=== PATIENT | female | born 1970 | race Caucasian/White ===

== ENCOUNTER 2016-03-18 11:34 | Emergency (ER) | payer OTHER ==
--- NOTE | 2016-03-18 16:29 | ED ---
GI/ HPI - HPI Summary HPI Summary: 45 F w/ PMH of fibroids presents with increase vaginal bleeding and possible prolapse. She states her menstrual period was later than normal. It started three days ago. She has experienced greater bleeding than normal. She states that she notice something prolapse out of her vagina yesterday but that it is not there today. She states she has passed a couple clots. She states she is suppose to be followed for her fibroids every year but has not seen an OBGYN in a year. She also admits to dysuria and her normal cramping pelvic pain for her periods. She states she has had frequent UTI. She had two vaginal births, one miscarriage, and two abortions. - History of Current Complaint Chief Complaint: EDUrogenitalProblems Time Seen by Provider: 03/18/16 16:14 Stated Complaint: VAG PROBLEM Pain Intensity: 3 - Allergy/Home Medications Allergies/Adverse Reactions: Allergies Allergy/AdvReac Type Severity Reaction Status Date / Time Sulfa Drugs Allergy Severe Difficulty Verified 06/20/15 08:59 Breathing Acetaminophen [From Tylenol] Allergy Difficulty Verified 06/20/15 08:59 Breathing Amoxicillin Allergy Rash Verified 06/20/15 08:59 Penicillins Allergy Rash Verified 06/20/15 08:59 Ibuprofen AdvReac See Comment Verified 06/20/15 08:59 PENI Allergy Headache Uncoded 06/20/15 08:59 PMH/Surg Hx/FS Hx/Imm Hx Endocrine/Hematology History: Reports: Hx Thyroid Disease - hypothyroid Denies: Hx Diabetes Cardiovascular History: Denies: Hx Congestive Heart Failure, Hx Hypertension, Hx Myocardial Infarction, Hx Pacemaker/ICD Respiratory History: Denies: Hx Asthma, Hx Chronic Obstructive Pulmonary Disease (COPD), Hx Lung Cancer GI History: Denies: Hx Gall Bladder Disease, Hx Gastrointestinal Bleed, Hx Ulcer, Hx Urosepsis History: Reports: Other Problems/Disorders - difficulty "getting started" recently Denies: Hx Kidney Stones, Hx Renal Disease Musculoskeletal History: Reports: Hx Back Problems Sensory History: Denies: Hx Hearing Aid Neurological History: Reports: Hx Migraine Denies: Hx Dementia, Hx Seizures, Hx Transient Ischemic Attacks (TIA) Psychiatric History: Reports: Hx Anxiety, Hx Depression Denies: Hx Eating Disorder, Hx Panic Disorder, Hx of Violent Episodes Against Others - Surgical History Surgery Procedure, Year, and Place: [facility] 2013. arm laceration 1985 Hx Anesthesia Reactions: No Infectious Disease History: No Infectious Disease History: Denies: Hx Clostridium Difficile, Hx Hepatitis, Hx Human Immunodeficiency Virus (HIV), Hx of Known/Suspected MRSA, Hx Shingles, Hx Tuberculosis, Hx Known/ Suspected VRE, Hx Known/Suspected VRSA, History Other Infectious Disease, Traveled Outside the [place] in Last 30 Days - Family History Known Family History: Positive: None, Unknown, Cardiac Disease, Hypertension - Social History Alcohol Use: Rare Substance Use Type: Reports: None Smoking Status (MU): Never Smoked Tobacco Amount Used/How Often: social smoker 20 years ago Review of Systems Negative: Fever Negative: Chest Pain Negative: Shortness Of Breath Positive: dysuria, other - vaginal bleeding, possible prolapse All Other Systems Reviewed And Are Negative: Yes Physical Exam Triage Information Reviewed: Yes Vital Signs On Initial Exam: Initial Vitals Temp Pulse Resp BP Pulse Ox 98.0 F 94 16 125/69 99 03/18/16 11:37 03/18/16 11:37 03/18/16 11:37 03/18/16 11:37 03/18/16 11:37 Vital Signs Reviewed: Yes Appearance: Positive: Well-Appearing Skin: Positive: Warm, Dry Head/Face: Positive: Normal Head/Face Inspection Eyes: Positive: Normal, Conjunctiva Clear ENT: Positive: Normal ENT inspection, Pharynx normal, TMs normal Respiratory/Lung Sounds: Positive: Clear to Auscultation, Breath Sounds Present Cardiovascular: Positive: Normal, RRR Abdomen Description: Positive: Nontender, Soft Bowel Sounds: Positive: Present Pelvic Exam: Positive: external exam normal, bimanual exam normal, no cerv. motion tender, blood, other - anterior prolapse noted on speculum exam Diagnostics - Vital Signs Vital Signs Temp Pulse Resp BP Pulse Ox 03/18/16 15:19 99.4 F 80 16 138/92 100 03/18/16 11:37 98.0 F 94 16 125/69 99 - Laboratory Result Diagrams: 03/18/16 16:30 Lab Statement: Any lab studies that have been ordered have been reviewed, and results considered in the medical decision making process. - Ultrasound No standard instances Ultrasound Interpretation: Positive (See Comments) - IMPRESSION: 1. At least one uterine fibroid is identified increased in size since the 2008 pelvic ultrasound. In addition the uterus is diffusely heterogeneous suggesting the presence of adenomyosis. If clinically warranted this can be further characterized with MRI of the pelvis with and without contrast. 2. Minimally enlarged periuterine veins can be associated with pelvic congestion syndrome in the correct clinical setting. Ultrasound Interpretation Completed By: Radiologist VILLA Course/Dx - Course Course Of Treatment: 45 F presents with increase vaginal bleeding and possible prolapse. Had normal menstrual period started 3 days ago with increased bleeding and noticed that something prolapsed when she went to the bathroom. She has a history of fibroids that she has not followed up with obgyn for in a year. On exam noted that has anterior prolapse in vaginal canal. u/s showed fibroid increased in size, discussed seeing obgyn for these problems and to perform kegel excerises in the meantime, patient agrees with plan - Diagnoses Differential Diagnoses - Female: , STD, Urinary Tract Infection, Vaginitis Provider Diagnoses: Prolapse of anterior vaginal wall, Fibroid, uterine, Vaginal bleeding Discharge - Discharge Plan Condition: Good Disposition: HOME Patient Education Materials: Uterine Prolapse (ED) Referrals: Luan Rodriguez MD [Primary Care Provider] - Additional Instructions: Follow up with OBGYN for continued care. Practice pelvic floor exercises Return to ED if develop any new or worsening symptoms
[2016-03-18 16:41] LABS: Hematocrit 41 % (35-47); Hemoglobin 13.8 g/dl (12.0-16.0); Mean Corpuscular HGB Conc 33 g/dl (31-36); Mean Corpuscular Hemoglobin 30 pg (27-31); Mean Corpuscular Volume 89 fL (80-97); Mean Platelet Volume 8 um3 (7.4-10.4); Red Blood Count 4.67 10^6/ul (4.0-5.4); Red Cell Distribution Width 14 % (10.5-15); White Blood Count 9.9 10^3/ul (3.5-10.8)
[2016-03-18 16:55] LABS: Urine Bacteria Absent (Absent); Urine Bilirubin Negative (Negative); Urine Glucose Negative (Negative); Urine Nitrite Negative (Negative)
--- NOTE | 2016-03-18 18:20 | RAD ---
INDICATION: Heavy vaginal bleeding COMPARISON: Pelvic ultrasound dated December 11, 2008 TECHNIQUE: Real-time transabdominal and transvaginal ultrasound examination of the female pelvis including grayscale and Doppler color flow imaging. FINDINGS: Uterus: The uterus measures 9.7 x 5.2 x 6.0 cm. There is at least one well-circumscribed uterine fibroid identified in the posterior myometrium measuring 1.8 x 2.1 x 2.4 cm, previously 1.3 x 1.1 x 1.1 cm. The uterus is heterogeneous and echogenicity. The endometrial stripe measures 5 mm in thickness. There are slightly enlarged periuterine veins measuring up to 6 mm in diameter that exhibited minimal augmentation with Valsalva maneuver. Ovaries: The right and left ovary measure 3.0 x 2.7 x 2.0 cm and 3.8 x 4.0 x 2.0 cm, respectively. Normal arterial and venous waveforms are identified. Appearance is within normal limits for the patient's age. There is no free fluid in the cul-de-sac. IMPRESSION: 1. At least one uterine fibroid is identified increased in size since the 2009 pelvic ultrasound. In addition the uterus is diffusely heterogeneous suggesting the presence of adenomyosis. If clinically warranted this can be further characterized with MRI of the pelvis with and without contrast. 2. Minimally enlarged periuterine veins can be associated with pelvic congestion syndrome in the correct clinical setting.
[2016-03-18 18:45] VITALS: BP 132/79
--- NOTE | 2016-03-20 08:10 | ED ---
Progress - Progress Note Progress Note: Pt's urine cx reveals klebsiella penum - she was dx'd w/ uterine prolapse and no medications. Will wait for sensitivities before rx'ing medication. Course/Dx - Course Course Of Treatment: 45 F presents with increase vaginal bleeding and possible prolapse. Had normal menstrual period started 3 days ago with increased bleeding and noticed that something prolapsed when she went to the bathroom. She has a history of fibroids that she has not followed up with obgyn for in a year. On exam noted that has anterior prolapse in vaginal canal. u/s showed fibroid increased in size, discussed seeing obgyn for these problems and to perform kegel excerises in the meantime, patient agrees with plan - Diagnoses Provider Diagnoses: Prolapse of anterior vaginal wall, Fibroid, uterine, Vaginal bleeding
--- NOTE | 2016-03-21 15:16 | ED ---
Progress - Progress Note Progress Note: Pt's urine cx reveals klebsiella penum - she was dx'd w/ uterine prolapse and no medications. Will wait for sensitivities before rx'ing medication. C&S returned today. Pt's organism is sensitive to most medications however given her allergy list, would avoid bactrim and beta lact anbx. Med list indicates she's taking cipro - not sure if this is current? Tried to call to discuss current med regimen status - no answer - LMTC. *If she's not currently taking cipro and hasn't taken it recently, would consider rx'ing for current condition as she's had it in the past (may inquire about previous experience if poor, consider alternative tx - see sensitivities for options). Course/Dx - Course Course Of Treatment: 45 F presents with increase vaginal bleeding and possible prolapse. Had normal menstrual period started 3 days ago with increased bleeding and noticed that something prolapsed when she went to the bathroom. She has a history of fibroids that she has not followed up with obgyn for in a year. On exam noted that has anterior prolapse in vaginal canal. u/s showed fibroid increased in size, discussed seeing obgyn for these problems and to perform kegel excerises in the meantime, patient agrees with plan - Diagnoses Provider Diagnoses: Prolapse of anterior vaginal wall, Fibroid, uterine, Vaginal bleeding
--- NOTE | 2016-03-22 13:48 | ED ---
Progress - Progress Note Progress Note: Pt's urine cx reveals klebsiella penum - she was dx'd w/ uterine prolapse and no medications. Will wait for sensitivities before rx'ing medication. C&S returned today. Pt's organism is sensitive to most medications however given her allergy list, would avoid bactrim and beta lact anbx. Med list indicates she's taking cipro - not sure if this is current? Tried to call to discuss current med regimen status - no answer - LMTC. *If she's not currently taking cipro and hasn't taken it recently, would consider rx'ing for current condition as she's had it in the past (may inquire about previous experience if poor, consider alternative tx - see sensitivities for options). Spoke w/ pt today - she reports she was actually dx'd w/ "bladder prolapse" not uterine prolapse - h/o recurrent UTI's - had cipro w/in the past month and takes this frequently. Admits she is resistant to this at times as she has other drug allergies so this has become a common rx for her infections. Feels a littl better since her period ended as she also has fibroids. Cx reveals she is sensitive to tetracycline so will start doxycycline - pt agrees w/ plan. E-rx'd and pt agrees to f/u w/ PCP Thursday. Understands if she has worsening of sx prior, will return to ED Course/Dx - Course Course Of Treatment: 45 F presents with increase vaginal bleeding and possible prolapse. Had normal menstrual period started 3 days ago with increased bleeding and noticed that something prolapsed when she went to the bathroom. She has a history of fibroids that she has not followed up with obgyn for in a year. On exam noted that has anterior prolapse in vaginal canal. u/s showed fibroid increased in size, discussed seeing obgyn for these problems and to perform kegel excerises in the meantime, patient agrees with plan - Diagnoses Provider Diagnoses: Prolapse of anterior vaginal wall, Fibroid, uterine, Vaginal bleeding
== END 2016-03-18 19:02 | disposition home or self-care (01) ==
LOC: ED 11:34
DX: N81.10 Cystocele, unspecified (principal); D25.9 Leiomyoma of uterus, unspecified; N93.9 Abnormal uterine and vaginal bleeding, unspecified; R30.0 Dysuria
CPT/HCPCS: 36415; 76830; 81003; 81015; 84702; 85025; 87077; 87086; 87186; 87480; 87491; 87510; 87591; 87661; 99282

== ENCOUNTER 2016-04-15 06:50 | Observation (INO) | payer OTHER ==
[2016-04-15] MEDS ORDERED: NS 0.9% 1000 ML* 1,000 ML IV ONE ×2 (07:24→08:23)
[2016-04-15 08:22] LABS: Hematocrit 37 % (35-47); Hemoglobin 12.2 g/dl (12.0-16.0); Mean Corpuscular HGB Conc 33 g/dl (31-36); Mean Corpuscular Hemoglobin 30 pg (27-31); Mean Corpuscular Volume 89 fL (80-97); Mean Platelet Volume 8 um3 (7.4-10.4); Red Blood Count 4.14 10^6/ul (4.0-5.4); Red Cell Distribution Width 14 % (10.5-15); White Blood Count 9.5 10^3/ul (3.5-10.8)
[2016-04-15 08:34] LABS: ALT 14 U/L (7-52); AST 18 U/L (13-39); Albumin 4.1 g/dL (3.2-5.2); Alkaline Phosphatase 58 U/L (34-104); Anion Gap 6 mmol/L (2-11); BUN/Creatinine Ratio 16.7 (8-20); Blood Urea Nitrogen 12 mg/dL (6-24); CO2 Carbon Dioxide 29 mmol/L (22-32); Calcium 9.1 mg/dL (8.6-10.3); Chloride 101 mmol/L (101-111); EGFR African American 113.7 (>60); EGFR Non-African American 88.4 (>60); Globulin 2.7 g/dL (2-4); Glucose 120 mg/dL (70-100); Potassium 3.9 mmol/L (3.5-5.0); Sodium 136 mmol/L (133-145); Total Protein 6.8 g/dL (6.4-8.9)
[2016-04-15 08:52] LABS: Acetaminophen < 15 mcg/mL; Alcohol < 10 mg/dL (<10); Salicylate < 2.50 mg/dL (<30)
[2016-04-15] MEDS ORDERED: Norgestrel/Ethinyl Estrad TAB* 0.5 MG/0.05 MG PO ONE (13:44)
[2016-04-15] MEDS ORDERED: Ondansetron ODT TAB* 4 MG PO PRN (14:37)
--- NOTE | 2016-04-15 16:33 | ED ---
Sayra Morrison Anna, scribed for Galen Owens MD on 04/15/16 at 0815 . GI/ HPI - HPI Summary HPI Summary: Patient is a 45 y/o female coming to [facility] presenting with the sudden onset of heavy vaginal bleeding that began yesterday morning. She is going through one adult diaper, one tampon, and two super pads each other. She syncopized at 01: 30 this morning, woke up in the bathroom, and drank one swallow of nail pakistani remover, thinking it was water. She spit it out and called poison control. Poison control said it was okay to throw up and recommended that she have peanut butter toast. She then came here. Denies fevers, chills. She also experienced heavy vaginal bleeding with the last few menstrual cycles, but this one is the worst so far. She does not want to receive blood products. - History of Current Complaint Chief Complaint: EDVaginalBleeding Time Seen by Provider: 04/15/16 08:08 Stated Complaint: VAG BLEEDING Hx Obtained From: Patient, Family/Crew Director Onset/Duration: Started Days Ago, Still Present Pain Intensity: 0 - Allergy/Home Medications Allergies/Adverse Reactions: Allergies Allergy/AdvReac Type Severity Reaction Status Date / Time Sulfa Drugs Allergy Severe Difficulty Verified 04/15/16 07:15 Breathing Acetaminophen [From Tylenol] Allergy Difficulty Verified 04/15/16 07:15 Breathing Amoxicillin Allergy Rash Verified 04/15/16 07:15 Penicillins Allergy Rash Verified 04/15/16 07:15 Ibuprofen AdvReac See Comment Verified 04/15/16 07:15 PENI Allergy Headache Uncoded 06/20/15 08:59 PMH/Surg Hx/FS Hx/Imm Hx Endocrine/Hematology History: Reports: Hx Thyroid Disease - hypothyroid Denies: Hx Diabetes Cardiovascular History: Denies: Hx Congestive Heart Failure, Hx Hypertension, Hx Myocardial Infarction, Hx Pacemaker/ICD Respiratory History: Denies: Hx Asthma, Hx Chronic Obstructive Pulmonary Disease (COPD), Hx Lung Cancer GI History: Denies: Hx Gall Bladder Disease, Hx Gastrointestinal Bleed, Hx Ulcer, Hx Urosepsis History: Reports: Other Problems/Disorders - difficulty "getting started" recently; prolapsed bladder Denies: Hx Kidney Stones, Hx Renal Disease Musculoskeletal History: Reports: Hx Back Problems Sensory History: Denies: Hx Hearing Aid Neurological History: Reports: Hx Migraine Denies: Hx Dementia, Hx Seizures, Hx Transient Ischemic Attacks (TIA) Psychiatric History: Reports: Hx Anxiety, Hx Depression Denies: Hx Eating Disorder, Hx Panic Disorder, Hx of Violent Episodes Against Others - Surgical History Surgery Procedure, Year, and Place: [facility] 2013. arm laceration 1985 Hx Anesthesia Reactions: No Infectious Disease History: No Infectious Disease History: Denies: Hx Clostridium Difficile, Hx Hepatitis, Hx Human Immunodeficiency Virus (HIV), Hx of Known/Suspected MRSA, Hx Shingles, Hx Tuberculosis, Hx Known/ Suspected VRE, Hx Known/Suspected VRSA, History Other Infectious Disease, Traveled Outside the [place] in Last 30 Days - Family History Known Family History: Positive: Cardiac Disease, Hypertension - Social History Occupation: Employed Full-time Lives: With Family Alcohol Use: Rare Substance Use Type: Reports: None Smoking Status (MU): Never Smoked Tobacco Amount Used/How Often: social smoker 20 years ago Review of Systems Negative: Fever, Chills Positive: Abdominal Pain Positive: other - vaginal bleeding Positive: Syncope All Other Systems Reviewed And Are Negative: Yes Physical Exam Triage Information Reviewed: Yes Vital Signs On Initial Exam: Initial Vitals Temp Pulse Resp BP Pulse Ox 98 F 95 17 140/78 100 04/15/16 07:11 04/15/16 07:11 04/15/16 07:11 04/15/16 07:11 04/15/16 07:11 Vital Signs Reviewed: Yes Appearance: Positive: Well-Appearing, No Pain Distress Skin: Positive: Warm, Dry, Pale - Slightly Head/Face: Positive: Normal Head/Face Inspection Eyes: Positive: EOMI, ALFREDO ENT: Positive: Normal ENT inspection Neck: Positive: Supple, Nontender Respiratory/Lung Sounds: Positive: Clear to Auscultation, Breath Sounds Present Cardiovascular: Positive: Tachycardia, Other - current BP 111/68 Abdomen Description: Positive: Nontender, Soft Bowel Sounds: Positive: Present Musculoskeletal: Positive: Normal, Strength/ROM Intact Neurological: Positive: Sensory/Motor Intact, Alert, Oriented to Person Place, Time Psychiatric: Positive: Affect/Mood Appropriate - Gualberto Coma Scale Coma Scale Total: 15 Diagnostics - Vital Signs Vital Signs Temp Pulse Resp BP Pulse Ox 04/15/16 07:11 98 F 95 17 140/78 100 - Laboratory Lab Results: Lab Results 04/15/16 04/15/16 04/15/16 Range/Units 07:45 07:45 07:45 WBC 9.5 (3.5-10.8) 10^3/ul RBC 4.14 (4.0-5.4) 10^6/ul Hgb 12.2 (12.0-16.0) g/dl Hct 37 (35-47) % MCV 89 (80-97) fL MCH 30 (27-31) pg MCHC 33 (31-36) g/dl RDW 14 (10.5-15) % Plt Count 373 (150-450) 10^3/ul MPV 8 (7.4-10.4) um3 Neut % (Auto) 55.2 (38-83) % Lymph % (Auto) 26.7 (25-47) % [place] % (Auto) 9.0 (1-9) % Eos % (Auto) 8.3 H (0-6) % Baso % (Auto) 0.8 (0-2) % Absolute Neuts (auto) 5.3 (1.5-7.7) 10^3/ul Absolute Lymphs (auto) 2.6 (1.0-4.8) 10^3/ul Absolute Monos (auto) 0.9 H (0-0.8) 10^3/ul Absolute Eos (auto) 0.8 H (0-0.6) 10^3/ul Absolute Basos (auto) 0.1 (0-0.2) 10^3/ul Absolute Nucleated RBC 0 10^3/ul Nucleated RBC % 0 INR (Anticoag Therapy) 1.05 (0.89-1.11) APTT 33.4 (26.0-36.3) seconds Sodium 136 (133-145) mmol/L Potassium 3.9 (3.5-5.0) mmol/L Chloride 101 (101-111) mmol/L Carbon Dioxide 29 (22-32) mmol/L Anion Gap 6 (2-11) mmol/L BUN 12 (6-24) mg/dL Creatinine 0.72 (0.51-0.95) mg/dL Est GFR ( Amer) 113.7 (>60) Est GFR (Non-Af Amer) 88.4 (>60) BUN/Creatinine Ratio 16.7 (8-20) Glucose 120 H (70-100) mg/dL Calcium 9.1 (8.6-10.3) mg/dL Total Bilirubin 0.40 (0.2-1.0) mg/dL AST 18 (13-39) U/L ALT 14 (7-52) U/L Alkaline Phosphatase 58 (34-104) U/L Total Protein 6.8 (6.4-8.9) g/dL Albumin 4.1 (3.2-5.2) g/dL Globulin 2.7 (2-4) g/dL Albumin/Globulin Ratio 1.5 (1-3) Salicylates < 2.50 (<30) mg/dL Acetaminophen < 15 mcg/mL Serum Alcohol < 10 (<10) mg/dL Blood Type Antibody Screen 04/15/16 Range/Units 07:45 WBC (3.5-10.8) 10^3/ul RBC (4.0-5.4) 10^6/ul Hgb (12.0-16.0) g/dl Hct (35-47) % MCV (80-97) fL MCH (27-31) pg MCHC (31-36) g/dl RDW (10.5-15) % Plt Count (150-450) 10^3/ul MPV (7.4-10.4) um3 Neut % (Auto) (38-83) % Lymph % (Auto) (25-47) % [place]ac % (Auto) (1-9) % Eos % (Auto) (0-6) % Baso % (Auto) (0-2) % Absolute Neuts (auto) (1.5-7.7) 10^3/ul Absolute Lymphs (auto) (1.0-4.8) 10^3/ul Absolute Monos (auto) (0-0.8) 10^3/ul Absolute Eos (auto) (0-0.6) 10^3/ul Absolute Basos (auto) (0-0.2) 10^3/ul Absolute Nucleated RBC 10^3/ul Nucleated RBC % INR (Anticoag Therapy) (0.89-1.11) APTT (26.0-36.3) seconds Sodium (133-145) mmol/L Potassium (3.5-5.0) mmol/L Chloride (101-111) mmol/L Carbon Dioxide (22-32) mmol/L Anion Gap (2-11) mmol/L BUN (6-24) mg/dL Creatinine (0.51-0.95) mg/dL Est GFR ( Amer) (>60) Est GFR (Non-Af Amer) (>60) BUN/Creatinine Ratio (8-20) Glucose (70-100) mg/dL Calcium (8.6-10.3) mg/dL Total Bilirubin (0.2-1.0) mg/dL AST (13-39) U/L ALT (7-52) U/L Alkaline Phosphatase (34-104) U/L Total Protein (6.4-8.9) g/dL Albumin (3.2-5.2) g/dL Globulin (2-4) g/dL Albumin/Globulin Ratio (1-3) Salicylates (<30) mg/dL Acetaminophen mcg/mL Serum Alcohol (<10) mg/dL Blood Type O Positive Antibody Screen Negative Result Diagrams: 04/15/16 07:45 04/15/16 07:45 Lab Statement: Any lab studies that have been ordered have been reviewed, and results considered in the medical decision making process. - EKG 0730 Cardiac Rate: NL - 97 bpm EKG Rhythm: Sinus Rhythm ST Segment: Normal Ectopy: None Re-Evaluation - Re-Evaluation First Eval Re-Evaluation Time: 12:41 Change: Unchanged Comment: Patient reports that she is still bleeding. The pain is currently unremarkable. Discussed results and plan of care with patient. Patient and family are agreeable. GIGU Course/Dx - Course Assessment/Plan: Discussed results with patient/family. Dr Simmons saw patient in ed. Patient admitted to mold closer helper stable. - Diagnoses Provider Diagnoses: menorrhagia - Physician Notifications Discussed Care Of Patient With: Dr. Simmons (OBGYN) at 13:06. Consult with Dr. Grace and call back if needed. Dr. Simmons (OBGYN) at 13:36. Dr. Simmons will come see the patient. Dr. Simmons (OBGYN) at 14:28. Accepts pt for admission. Discharge - Discharge Plan Condition: Stable Disposition: ADMITTED TO [facility] The documentation as recorded by the Sayra mccarthy Anna accurately reflects the service I personally performed and the decisions made by me, Galen Owens MD.
[2016-04-15] MEDS: Conjugated Estrogens TAB* 1.25 MG TAB PO SCH ×2 (16:40→21:26)
[2016-04-15] MEDS ORDERED: LORazepam TAB(*) 0.5 MG PO PRN (21:21)
[2016-04-15 21:59] LABS: Hematocrit 27 % (35-47); Hemoglobin 8.9 g/dl (12.0-16.0); Mean Corpuscular HGB Conc 33 g/dl (31-36); Mean Corpuscular Hemoglobin 29 pg (27-31); Mean Corpuscular Volume 89 fL (80-97); Mean Platelet Volume 8 um3 (7.4-10.4); Red Blood Count 3.07 10^6/ul (4.0-5.4); Red Cell Distribution Width 14 % (10.5-15); White Blood Count 14.3 10^3/ul (3.5-10.8)
--- NOTE | 2016-04-15 22:07 | PN ---
Progress Note - Progress Note SOAP: Subjective: Pt reports no improvement in bleeding so far. Just had first dose of Premarin 2.5mg about 6 hrs ago, and second dose was given a few min ago. Tired, and unable to rest because she has to change a soaked pad every 15-20 min. Objective: Vital Signs: Temp Pulse Resp BP Pulse Ox 98.5 F 102 20 128/83 100 04/15/16 20:15 04/15/16 20:15 04/15/16 21:56 04/15/16 20:15 04/15/16 20:15 Gen: seated, comfortable, NAD, but appears tired Assessment: Acute menorrhagia, about 6 hrs into hormone treatment to try to improve bleeding. Still hemodynamically stable at this point. Plan: CBC ordered and pending. Discussed options for treatment if bleeding does not improve in the next several hours and if H/H is alarming. Considering pt will not allow blood transfusion, I would need to be more aggressive with possible surgical treatment. Options include D&C (which would likely give only temporary benefit). Intrauterine balloon would likely need to accompany this to allow tamponade. Endometrial ablation after D&C would also be reasonable treatment since pt has already had a recent embx which was benign. Pt is amenable to these treatments if needed. I will reassess later to see if bleeding is improving.
--- NOTE | 2016-04-15 23:28 | HP ---
HISTORY AND PHYSICAL: DATE OF ADMISSION: 04/15/16 HISTORY OF PRESENT ILLNESS: This patient is a 45-year-old 3 para 2-0-1- 2, who presented to the emergency department today reporting very heavy menses that started yesterday, continued all day and all night, and she eventually got concerned and came in to the emergency department. The patient reports that she was having to change fairly heavy pads at least twice an hour during this time. The patient denies nausea or vomiting. No syncope or lightheadedness. The patient has been followed in the [facility] recently for this heavy bleeding as well as for complaint of urinary incontinence and uterine prolapse. The patient has actually already been seen by Dr. Magallon in Interventional Radiology with plans for uterine artery embolization to treat the heavy bleeding and signs of possible pelvic congestion. The patient had this procedure scheduled for next week. She was hoping to not have another period before the procedure to be done. The patient's periods have only been very heavy over the last 3-4 months. Prior to that, they had not been excessive. Of note, the patient is a Jehov[employer]' s Witness and therefore will not accept blood product transfusions. PAST MEDICAL HISTORY: Hypothyroidism, urinary incontinence, and history of depression. PAST SURGICAL HISTORY: Appendectomy, repair of laceration on her arm, and wisdom tooth extraction. PAST OB HISTORY: 3, para 2 with 2 spontaneous vaginal deliveries, and one miscarriage. ALLERGIES: SULFA, AMOXICILLIN, and ACETAMINOPHEN. MEDICATIONS: 1. Maxalt 10 mg p.r.n. for headaches. 2. Lorazepam 0.5 to 1 mg b.i.d. as needed for anxiety. 3. Clayton Thyroid 60 mg daily. SOCIAL HISTORY: The patient is with a long distance relationship currently. Negative tobacco and rare alcohol use. No drug use. REVIEW OF SYSTEMS: General: The patient is anxious but otherwise feels well. Cardiovascular: Negative. Respiratory: Negative. GI: Negative. Genitourinary: As above. Neurological: Negative. Hematological: As above. PHYSICAL EXAMINATION GENERAL: The patient is in no acute distress. Fairly comfortable and seated. VITAL SIGNS: Temperature 97.5, pulse 100, respiratory rate 20, oxygen saturation 99% on room air, blood pressure 147/87. CHEST: Clear to auscultation bilaterally. CARDIOVASCULAR: Normal sinus rhythm with mild tachycardia. ABDOMEN: Soft and nontender. PELVIC: Examination done by ER provider was notable for significant bright red vaginal bleeding and otherwise unremarkable. LABORATORY INFORMATION: White blood cell count 9.5, hemoglobin 12.2, hematocrit 37, platelets 373. Chemistry with potassium 3.9, creatinine 0.72. Normal LFTs. Imaging not done today, but pelvic ultrasound earlier this month showed uterus measuring 9.7 x 5.2 x 6 cm with one single 2.4 cm posterior fibroid. Uterus appears heterogeneous in echogenicity with an endometrial stripe of 5 mm. There is note of slightly enlarged periuterine veins. Ovaries appeared normal. IMPRESSION: A 45-year-old 3 para 2 with recent development of menorrhagia over the last 3-4 months, now with substantial bleeding, which started about 24 hours ago. The patient is currently hemodynamically stable with reassuring CBC, but the bleeding is persistent. PLAN: We attempted to see if the embolization could be done more urgently; however, Dr. Magallon is not available this week. For a short-term treatment, we will start Premarin 2.5 mg PO 4 times daily to see if we can improve the bleeding fairly quickly. The patient will be placed on observation, so we can continue to follow the bleeding and potentially offer additional treatment if necessary. Treatment will need to be somewhat more aggressive since the patient will not allow transfusion with blood products, and if she becomes hemodynamically unstable, it will be much more difficult to manage her. [id number]/[facility] #: [id number] ASHLEY
[2016-04-16] MEDS: Conjugated Estrogens TAB* 1.25 MG TAB PO SCH ×2 (03:08→08:23)
[2016-04-16] MEDS ORDERED: Thyroid TAB* 60 MG PO SCH (09:00)
[2016-04-16 09:35] LABS: Hematocrit 27 % (35-47); Hemoglobin 8.9 g/dl (12.0-16.0); Mean Corpuscular HGB Conc 33 g/dl (31-36); Mean Corpuscular Hemoglobin 29 pg (27-31); Mean Corpuscular Volume 89 fL (80-97); Mean Platelet Volume 8 um3 (7.4-10.4); Red Blood Count 3.06 10^6/ul (4.0-5.4); Red Cell Distribution Width 14 % (10.5-15); White Blood Count 11.6 10^3/ul (3.5-10.8)
[2016-04-16 11:34] VITALS: BP 137/73
--- NOTE | 2016-04-16 12:30 | DCNOTE ---
S: pt is feeling much better and her bleeding has decreased significantly. She feels tired but is able to ambulate without dizziness. Eating regular diet. She was finally able to sleep for 6hrs until about 8:30. VSS Gen: NAD, not pale Abd: soft, NT/ND Labs: H/H remained stable overnight at 8./. Assessment: 45yo pt with heavy vaginal bleeding and anemia. Bleeding has decreased significantly with initiation of premarin and her H/H stablized overnight. Due to her improvement she will be discharged. Plans: D/C to home Continue Premarin until [place]. Take iron supplement, colace prn, vitamin C for 6 weeks. Call our office with increased bleeding or any other concerns Follow up as scheduled with Dr. Magallon for MRI and then Uterine Artery Embolization next week.
--- NOTE | 2016-04-16 12:33 | DS ---
Admitting Dx: vaginal bleeding Discharge Dx: vaginal bleeding Hospital Course: Pt was admitted and placed on PO premarin with eventual decrease in her bleeding. Her H/H initially dropped but after the bleeding decreased a repeat H/H remained stable overnight. No films/xrays or procedures Discharge disposition: Home Discharge Instructions in computer system & reviewed with patient
== END 2016-04-16 14:25 | disposition home or self-care (01) ==
LOC: ED 06:50 → INTOOBSV 14:30 → SSU 14:30 → OBSVTOIN 14:30
PROVIDERS: ADMIT Obstetrics & Gynecology; ATTEND Obstetrics & Gynecology
DX: N92.0 Excessive and frequent menstruation with regular cycle (principal); E03.9 Hypothyroidism, unspecified; R32 Unspecified urinary incontinence; Z88.0 Allergy status to penicillin; Z88.2 Allergy status to sulfonamides; Z88.6 Allergy status to analgesic agent; Z88.8 Allergy status to other drugs, medicaments and biological substances
CPT/HCPCS: 36415; 80053; 80320; 80329; 85025; 85027; 85610; 85730; 86850; 86900; 86901; 93005; 96360; 96361; 99283; A9270-GY; G0378; G0480

== ENCOUNTER 2016-05-24 13:14 | Emergency (ER) | payer OTHER ==
[2016-05-24] MEDS ORDERED: oxyCODONE TAB* 5 MG TAB PO ONE (14:09)
[2016-05-24 14:24] LABS: Hematocrit 28 % (35-47); Hemoglobin 8.8 g/dl (12.0-16.0); Mean Corpuscular HGB Conc 32 g/dl (31-36); Mean Corpuscular Hemoglobin 26 pg (27-31); Mean Corpuscular Volume 80 fL (80-97); Mean Platelet Volume 7 um3 (7.4-10.4); Red Blood Count 3.45 10^6/ul (4.0-5.4); Red Cell Distribution Width 17 % (10.5-15); White Blood Count 6.3 10^3/ul (3.5-10.8)
[2016-05-24 14:40] LABS: Albumin 3.5 g/dL (3.2-5.2); BUN/Creatinine Ratio 18.2 (8-20); Calcium 8.5 mg/dL (8.6-10.3); EGFR African American 125.7 (>60); EGFR Non-African American 97.7 (>60); Globulin 2.7 g/dL (2-4); Magnesium 2.1 mg/dL (1.9-2.7); Potassium 3.7 mmol/L (3.5-5.0); Total Bilirubin 0.2 mg/dL (0.2-1.0); Total Protein 6.2 g/dL (6.4-8.9)
[2016-05-24 15:11] LABS: TSH (Thyroid Stimulating Horm) 0.86 mcIU/mL (0.34-5.60)
--- NOTE | 2016-05-24 15:17 | ED ---
Lower Extremity - HPI Summary HPI Summary: 45F presents with cramps in both legs. She says that she has been on control due to bleeding recently. She denies any injury. She describes it as a sharp pain when the cramps occur and a dull pain when she is not having the cramps. The pain is greatest in her right thigh. She denies any chest pain or SOB. She denies any personal or family history of blood clots, recent travel, or personal history of cancer. She does not currently smoke. - History of Current Complaint Chief Complaint: EDExtremityLower Stated Complaint: CRAMPS IN BOTH LEGS/SHAKEY Time Seen by Provider: 05/24/16 13:56 Hx Last Menstrual Period: 11/15/15 Pain Intensity: 10 - Allergies/Home Medications Allergies/Adverse Reactions: Allergies Allergy/AdvReac Type Severity Reaction Status Date / Time Sulfa Drugs Allergy Severe Difficulty Verified 05/24/16 13:17 Breathing Acetaminophen [From Tylenol] Allergy Difficulty Verified 05/24/16 13:17 Breathing Amoxicillin Allergy Rash Verified 05/24/16 13:17 Penicillins Allergy Rash Verified 05/24/16 13:17 Ibuprofen AdvReac See Comment Verified 05/24/16 13:17 PENI Allergy Headache Uncoded 05/24/16 13:17 PMH/Surg Hx/FS Hx/Imm Hx Endocrine/Hematology History: Reports: Hx Thyroid Disease - hypothyroid, Hx Anemia Denies: Hx Diabetes Cardiovascular History: Denies: Hx Congestive Heart Failure, Hx Hypertension, Hx Myocardial Infarction, Hx Pacemaker/ICD Respiratory History: Reports: Hx Chronic Bronchitis, Hx Seasonal Allergies Denies: Hx Asthma, Hx Chronic Obstructive Pulmonary Disease (COPD), Hx Lung Cancer GI History: Denies: Hx Gall Bladder Disease, Hx Gastrointestinal Bleed, Hx Ulcer, Hx Urosepsis History: Reports: Hx Kidney Infection, Other Problems/Disorders - difficulty "getting started" recently; prolapsed bladder Denies: Hx Kidney Stones, Hx Renal Disease Musculoskeletal History: Reports: Hx Back Problems Sensory History: Denies: Hx Hearing Aid Neurological History: Reports: Hx Headaches, Hx Migraine Denies: Hx Dementia, Hx Seizures, Hx Transient Ischemic Attacks (TIA) Psychiatric History: Reports: Hx Anxiety, Hx Depression Denies: Hx Eating Disorder, Hx Panic Disorder, Hx of Violent Episodes Against Others - Surgical History Surgery Procedure, Year, and Place: [facility] 2013. RIGHT arm laceration 1985 Hx Anesthesia Reactions: No Infectious Disease History: No Infectious Disease History: Denies: Hx Clostridium Difficile, Hx Hepatitis, Hx Human Immunodeficiency Virus (HIV), Hx of Known/Suspected MRSA, Hx Shingles, Hx Tuberculosis, Hx Known/ Suspected VRE, Hx Known/Suspected VRSA, History Other Infectious Disease, Traveled Outside the [place] in Last 30 Days - Family History Known Family History: Positive: None, Unknown, Cardiac Disease, Hypertension - Social History Alcohol Use: None Substance Use Type: Reports: None Smoking Status (MU): Former Smoker Amount Used/How Often: social smoker 20 years ago Review of Systems Negative: Fever Negative: Chest Pain Negative: Shortness Of Breath Positive: Myalgia - bilateral leg cramps All Other Systems Reviewed And Are Negative: Yes Physical Exam Triage Information Reviewed: Yes Vital Signs On Initial Exam: Initial Vitals Temp Pulse Resp BP Pulse Ox 100 F 111 16 152/72 100 05/24/16 13:17 05/24/16 13:17 05/24/16 13:17 05/24/16 13:17 05/24/16 13:17 Vital Signs Reviewed: Yes Appearance: Positive: Well-Appearing Skin: Positive: Warm, Dry Head/Face: Positive: Normal Head/Face Inspection Eyes: Positive: Normal, Conjunctiva Clear Respiratory/Lung Sounds: Positive: Clear to Auscultation, Breath Sounds Present Cardiovascular: Positive: Normal, RRR Musculoskeletal: Positive: Strength/ROM Intact - of lower extremity, Other - good pulses, capillary refill < 2secs, nontender to palpation,. Negative: Issa Sign Left, Issa Sign Right, Edema Left, Edema Right Diagnostics - Vital Signs Vital Signs Temp Pulse Resp BP Pulse Ox 05/24/16 14:20 99.2 F 110 24 138/48 98 05/24/16 13:51 99.7 F 103 24 137/48 100 05/24/16 13:43 100.5 F 110 24 137/48 100 05/24/16 13:17 100 F 111 16 152/72 100 - Laboratory Lab Results: Lab Results 05/24/16 05/24/16 Range/Units 11:45 11:45 WBC 6.3 (3.5-10.8) 10^3/ul RBC 3.45 L (4.0-5.4) 10^6/ul Hgb 8.8 L (12.0-16.0) g/dl Hct 28 L (35-47) % MCV 80 (80-97) fL MCH 26 L (27-31) pg MCHC 32 (31-36) g/dl RDW 17 H (10.5-15) % Plt Count 402 (150-450) 10^3/ul MPV 7 L (7.4-10.4) um3 Neut % (Auto) 50.1 (38-83) % Lymph % (Auto) 32.1 (25-47) % [place] % (Auto) 10.9 H (1-9) % Eos % (Auto) 6.1 H (0-6) % Baso % (Auto) 0.8 (0-2) % Absolute Neuts (auto) 3.1 (1.5-7.7) 10^3/ul Absolute Lymphs (auto) 2.0 (1.0-4.8) 10^3/ul Absolute Monos (auto) 0.7 (0-0.8) 10^3/ul Absolute Eos (auto) 0.4 (0-0.6) 10^3/ul Absolute Basos (auto) 0 (0-0.2) 10^3/ul Absolute Nucleated RBC 0 10^3/ul Nucleated RBC % 0 Sodium 135 (133-145) mmol/L Potassium 3.7 (3.5-5.0) mmol/L Chloride 102 (101-111) mmol/L Carbon Dioxide 29 (22-32) mmol/L Anion Gap 4 (2-11) mmol/L BUN 12 (6-24) mg/dL Creatinine 0.66 (0.51-0.95) mg/dL Est GFR ( Amer) 125.7 (>60) Est GFR (Non-Af Amer) 97.7 (>60) BUN/Creatinine Ratio 18.2 (8-20) Glucose 121 H (70-100) mg/dL Calcium 8.5 L (8.6-10.3) mg/dL Magnesium 2.1 (1.9-2.7) mg/dL Total Bilirubin 0.20 (0.2-1.0) mg/dL AST 31 (13-39) U/L ALT 17 (7-52) U/L Alkaline Phosphatase 38 (34-104) U/L Total Protein 6.2 L (6.4-8.9) g/dL Albumin 3.5 (3.2-5.2) g/dL Globulin 2.7 (2-4) g/dL Albumin/Globulin Ratio 1.3 (1-3) TSH 0.86 (0.34-5.60) mcIU/mL Result Diagrams: 05/24/16 11:45 05/24/16 11:45 Lab Statement: Any lab studies that have been ordered have been reviewed, and results considered in the medical decision making process. - Ultrasound No standard instances Ultrasound Interpretation: No Acute Changes - IMPRESSION: No evidence for RIGHT lower extremity deep venous thrombosis. Ultrasound Interpretation Completed By: Radiologist Lower Extremity Course/Dx - Course Course Of Treatment: 45F presents with leg cramps for a day that are severe. denies any injury. is on control but no other risk factors for DVT. pain greatest in right leg. neg homans and nontender to palpation. due to being on OCP got u/s right leg which was normal. ordered labs which Ca was a little low but not enough to really treat. told to take a couple tums and follow up with primary. patient understands and agrees with plan - Diagnoses Differential Diagnosis/HQI/PQRI: Positive: DVT, Sprain, Strain Provider Diagnoses: Leg cramps Discharge - Discharge Plan Condition: Good Disposition: HOME Prescriptions: oxyCODONE TAB* [Roxycodone TAB 5 mg*] 5 mg PO Q6H PRN #15 tab MDD 4 PRN Reason: Pain Patient Education Materials: Leg Cramps (ED) Referrals: Luan Rodriguez MD [Primary Care Provider] - Additional Instructions: Take Tylenol for pain every 6 hours. use narcotic for break through pain as needed every 6 hours Follow up with primary within 5 days Return to ED if develop any new or worsening symptoms
--- NOTE | 2016-05-24 15:22 | RAD ---
INDICATION: RIGHT calf and thigh cramping. On oral contraceptives. COMPARISON: April 07, 2015 LEFT lower extremity ultrasound. TECHNIQUE: Tyson scale, color Doppler, and spectral analysis of the deep veins of the RIGHT lower extremity. Vessel compression, phasicity, and augmentation assessed. REPORT: The RIGHT common femoral, great saphenous, profunda femoral, femoral, popliteal, peroneal, and posterior tibial veins are patent. Patency of the contralateral common femoral vein documented. IMPRESSION: No evidence for RIGHT lower extremity deep venous thrombosis.
[2016-05-24 16:08] VITALS: BP 126/66
== END 2016-05-24 16:06 | disposition home or self-care (01) ==
LOC: ED 13:14
DX: R25.2 Cramp and spasm (principal)
CPT/HCPCS: 36415; 80053; 83735; 84443; 85025; 99283; A9270-GY

== ENCOUNTER 2016-05-30 08:16 | Observation (INO) | payer OTHER ==
[2016-05-30] MEDS ORDERED: LORazepam TAB(*) 1 MG ONE (09:21)
[2016-05-30] MEDS ORDERED: Clindamycin 900 MG IVPREMIX(* 900 MG/50 ML SDV IV ONE (10:00)
[2016-05-30] MEDS ORDERED: Scopolamine 1.5 mg* PATCH TRANSDERM ONE (10:00)
[2016-05-30] MEDS ORDERED: Flumazenil* 0.1 MG/ML 5 ML MDV ONE (10:20)
[2016-05-30] MEDS ORDERED: Heparin(*) 1000 UNIT/ML 10 ML VIAL CATH LAB IV ONE (10:20)
[2016-05-30] MEDS ORDERED: Ketorolac INJ* 30 MG/ML 1 ML VIAL ONE ×2 (10:20→12:43)
[2016-05-30] MEDS ORDERED: Naloxone* 0.4 MG/ML 1 ML VIAL ONE (10:20)
[2016-05-30] MEDS ORDERED: Midazolam* 1 MG/ML 5 ML VIAL (5 MG) ONE ×3 (10:20→13:16)
[2016-05-30] MEDS ORDERED: fentaNYL* 50 MCG/ML 5 ML VIAL (250 MCG VIAL) ONE (10:20)
[2016-05-30] MEDS ORDERED: Iohexol 350 (CONTRAST) 200 ML MDV IV ONE (10:21)
[2016-05-30] MEDS ORDERED: Lidocaine 1% INJ* 10 MG/ML 30 ML SDV ONE (10:21)
[2016-05-30] MEDS ORDERED: Heparin 2 UNITS/ML IVPREMIX* 2,000 ML IV ONE (10:21)
[2016-05-30] MEDS ORDERED: nitroGLYCERIN DRIP* 250 ML ONE (10:23)
[2016-05-30] MEDS ORDERED: Ondansetron INJ* 2 MG/ML VIAL ONE (11:25)
[2016-05-30] MEDS ORDERED: fentaNYL* 50 MCG/ML 2 ML VIAL (100 MCG VIAL) ONE ×4 (12:41→13:16)
[2016-05-30] MEDS ORDERED: HYDROmorphone INJ* 1 MG/ML CARPUJECT SYRINGE ONE ×5 (12:55→14:54)
[2016-05-30] MEDS ORDERED: HYDROmorphone PCA* 20 MG/20 ML PCA.SYRING PCA SCH (14:00)
[2016-05-30] MEDS ORDERED: diPHENhydraMINE IV* 50 MG/ML 1 ml VIAL (BENADRYL) IV SCH (14:00)
[2016-05-30] MEDS: NS 0.9% 1000 ML* 1,000 ML IV SCH ×2 (14:32→21:24)
--- NOTE | 2016-05-30 14:33 | PN ---
Progress Note - Progress Note SOAP: Subjective: Patient sleeping upon room entry. Arousable. Complains of 5/10 pelvic pain. No nausea. Objective: Normotensive, 100% on RA Sleeping upon room entry. AAO x 3 when aroused. Falls asleep when I stop talking to her. Left CF arteriotomy is soft, non-ecchymotic Low abdomen is tender to palpation No vaginal drainage 2+ pulses in BLE Assessment: 45 YOF status post UFE with 2 mL Embozene 500 micron x 2 and ~1.5 mL Embozene 700 micron with appropriate post UFE pain. Plan: 1. Standard pain and nausea control per IR protocol with Benadryl 50 mg IV added. 2. Strict bedrest until 1900 hours. 3. Hospitalist admission. 4. Gentle diet advancement as tolerated. 5. Marcus catheter removed at 1900 hours. 6. IVF: NS 500 mL bolus now followed by 175 mL/hr.
[2016-05-30] MEDS ORDERED: HYDROmorphone INJ* 2 MG/ML CARPUJECT SYRINGE IV ONE (14:45)
[2016-05-30] MEDS ORDERED: Morphine INJ* 2 MG/ML 1 ML CARPUJECT IV PRN ×2 (15:39→16:49)
[2016-05-30] MEDS ORDERED: Morphine INJ* 2 MG/ML 1 ML CARPUJECT ONE (15:47)
[2016-05-30] MEDS ORDERED: Morphine INJ* 2 MG/ML 1 ML CARPUJECT IV ONE (16:00)
[2016-05-30] MEDS ORDERED: Morphine INJ* 2 MG/ML 1 ML CARPUJECT IV SCH (16:00)
--- NOTE | 2016-05-30 16:16 | RAD ---
CPT II Codes: 6045F History: Heavy menstrual bleeding and anemia secondary to uterine fibroids. Comparison: MRI pelvis dated April 22, 2016 as well as pelvic ultrasound dated March 18, 2016 that depicts uterine fibroids. Anesthesia: Conscious sedation with IV Fentanyl and Versed as well as local 1% lidocaine injected locally at the arteriotomy site. Additional medications: Bilaterally and 4 mg Toradol 30 mg IV Toradol 30 mg intra-arterial (15 mg injected into each uterine artery) Scopolamine patch placed immediately before the embolization procedure Clindamycin 900 mg IV 750 mcg IA nitroglycerin. Zofran 4 mg Contrast: Omnipaque 300 60 mL Fluoroscopy Time: 28.5 minutes PROCEDURE NOTE AND INTRAPROCEDURAL IMAGING FINDINGS: Immediately prior to the procedure the patient signed consent after thoroughly discussing all risks and benefits. The patient was positioned on the fluoroscopy table in the supine position and the bilateral groins were shaved, prepped and draped in standard sterile fashion. Using fluoroscopic imaging the location of the left common femoral head was marked externally with a skin marker on the patient's groin. Utilizing sonographic guidance and palpation the left common femoral artery was cannulated overlying the right femoral head with an 21-gauge needle. An ultrasound image was saved. A microwire was slowly and smoothly advanced to the aortic bifurcation under fluoroscopic imaging. No buckling of the wire was visualized to indicate dissection. Over the wire a 5-Croatian catheter was advanced into the artery, the inner stiffener removed and the microwire was replaced with a 0.035" Bentsen wire which was advanced into the aorta. Finally the 5 Croatian catheter was exchanged for a 5 Croatian sidearm sheath. Utilizing a Bentson wire and 5-Croatian Contra 2 flush catheter the right common iliac artery was accessed. Over the wire the Contra 2 was exchanged for a 5 Croatian Carlos catheter and this was used to access the right internal iliac artery. Contrast angiography was performed to detail the branches of the right internal iliac artery which had depicted the uterine artery providing blood flow to the patient's fibroid uterus. Arteriograms in multiple oblique projections were performed to best discern the branch point of the uterine artery. Once the uterine artery was identified, a Renegade High-flow microcatheter and microwire were advanced into the parent catheter and, in conjunction with contrast angiography, the uterine artery was identified and selected with the micro catheter. Prior to embolization, contrast injection in the lateral portion of the uterine artery demonstrated no large, obvious collateral blood flow to the ovaries and a definite cervicovaginal branch was not seen descending inferiorly. Intra-arterial nitroglycerin was slowly injected intermittently to alleviate arterial spasm. Under fluoroscopic control approximately 3 mL of 500 micron Embozene particles were slowly injected into the uterine artery to near complete stasis. Republic through the embolization 15 mg of Toradol was injected intra-arterially. The microcatheter was pulled back into the more proximal descending portion of the uterine artery and contrast angiography depicted near complete stasis of the uterine artery. The microcatheter was removed and replaced with an 0.035" guidewire. A "Rob's loop" was formed with the 5-Croatian Carlos catheter in the infrarenal abdominal aorta. Utilizing the guidewire and the 5-Croatian catheter access into the ipsilateral left internal iliac artery was obtained. Contrast angiography demarcated the left uterine artery and multiple oblique projections were obtained to best depict the origin of the uterine artery. Once the uterine artery was identified, the Renegade High-flow microcatheter and microwire were advanced into the parent catheter and, in conjunction with contrast angiography, the uterine artery was identified and selected with the micro catheter. Prior to embolization, contrast injection in the lateral portion of the uterine artery demonstrated no large, obvious collateral blood flow to the ovaries and a definite cervicovaginal branch was not seen descending inferiorly. Intra-arterial nitroglycerin was slowly injected intermittently to alleviate arterial spasm. Under fluoroscopic control approximately 1 mL of 500 micron Embozene and 1.5 mL 700 micron Embozene particles were slowly injected into the uterine artery to near complete stasis. Republic through the embolization 15 mg of Toradol was injected intra-arterially. The microcatheter was pulled back into the more proximal descending portion of the uterine artery and contrast angiography depicted near complete stasis of the uterine artery. The micro catheter was removed, replaced with a 0.035" wire and the 5-Croatian catheter and 0.035 inch wire were removed after reaccessing the contralateral right common iliac artery. The access sheath was removed and pressure was held at the common femoral arteriotomy for approximately 15 minutes. There were no signs of bleeding at the left groin access site and the site was dressed with sterile gauze and Tegaderm. The patient tolerated the procedure well and was transferred to the short stay recovery unit in stable condition for routine overnight observation and pain and nausea control. IMPRESSION: 1. Pelvic arteriography demonstrates the patient's fibroid uterus. 2. Pelvic arteriography as described in the body of the report. 3. Successful bilateral uterine artery embolization utilizing a total of 4 mL 500 micron Embozene and 1.5 mL 700 micron Embozene particles. 4. Post embolization uterine arteriography demonstrates near complete stasis of blood flow in each uterine artery. Plan: 1. The patient is to be admitted to short state recovery unit for routine overnight observation and pain and nausea control. 2. Outpatient management and follow-up according to Interventional Radiology protocol.
[2016-05-30] MEDS ORDERED: NS 0.9% 500 ML* 500 ML IV ONE ×2 (16:40→18:00)
[2016-05-30] MEDS ORDERED: LORazepam INJ* 2 MG/ML 1 ML VIAL IV PUSH PRN ×2 (16:50→19:58)
--- NOTE | 2016-05-30 16:55 | PN ---
Progress Note - Progress Note Note: Date of Service: 05/30/16 Patient seen and examined at the bedside gain, this time with input from her mother. Pain is better controlled. Patient sleeping intermittently. Left CF arteriotomy is soft, non-ecchymotic. 2+ pulses BLE 45 YOF status post UFE with difficult pain control. Plan: 1. Patient seems to respond better to Morphine. Change DIRECTOR NON PROFIT to Morphine supplemented by 2 mg IV PRN. 2. Add Ativan IV 1 mg Q 4 hours 3. Bolus 500 mL NS and encourage sips.
[2016-05-30] MEDS ORDERED: Morphine PCA ADULT* 5 MG/ML 30 ML PCA SCH (17:00)
[2016-05-30] MEDS: Ketorolac INJ* 15 MG/ML 1 ML VIAL IV PUSH SCH (17:37)
[2016-05-30] MEDS: Ondansetron INJ* 2 MG/ML VIAL IV SCH (17:38)
[2016-05-30] MEDS ORDERED: diPHENhydraMINE IV* 50 MG/ML 1 ml VIAL (BENADRYL) IV PRN (19:57)
--- NOTE | 2016-05-30 22:15 | HP ---
AMENDED REPORT NOW INCLUDES COSIGNER DESIGNATION - ESIGNED BEFORE ADJUSTMENT HOSPITAL MEDICINE HISTORY AND PHYSICAL: DATE OF ADMISSION: 05/20/16 PRIMARY CARE PHYSICIAN: Dr. Rodriguez. ATTENDING PHYSICIAN: Dr. Jeaneth Saldaña* (dictation provided by Nemo Crocker NP) REASON FOR ADMISSION: Planned uterine fibroid embolization for heavy uterine bleeding. HISTORY OF PRESENT ILLNESS: Ms. Monahan is a 45-year-old female with a past medical history of hypothyroidism, appendectomy, and lifelong heavy uterine bleeding who has had significant increase in her bleeding in recent weeks to months. Ms. Monahan was admitted to the hospital on 04/15/16 with heavy uterine bleeding and she was started on Premarin. Plans were then made for her to see Dr. Magallon for planned uterine fibroid embolization. Per the report, Ms. Monahan did come in for uterine fibroid embolization early in April. Dr. Magallon states that he was unable to access the left side of the uterus for embolization and therefore the patient had to return. The patient returned today for planned uterine fibroid embolization that was uneventful per Dr. Magallon's verbal report. Ms. Monahan states that other than this heavy uterine bleeding, she has been having no acute complaint. She denies any chest pain. She had no shortness of breath, cough, nausea, vomiting, diarrhea, or abdominal pain. PAST MEDICAL HISTORY: 1. Heavy uterine bleeding. 2. Anemia, hemoglobin 8.8 secondary to heavy uterine bleeding. 3. Hypothyroidism. 4. History of appendectomy. 5. History of depression. 6. History of urinary incontinence. MEDICATIONS: 1. Maxalt 10 mg p.r.n. for headaches. 2. Lorazepam 0.5 to 1 mg b.i.d. as needed for anxiety. 3. [place] Thyroid 60 mg daily. FAMILY HISTORY: The patient's mother is at the bedside. She is in good health. SOCIAL HISTORY: No report of alcohol, tobacco, or drug use. She lives alone. She states her mother would be the healthcare proxy. REVIEW OF SYSTEMS: A 14-point review of systems was completed with Ms. Monahan and all those not mentioned above were negative. PHYSICAL EXAMINATION GENERAL: Ms. Monahan is lying in the bed. She appears uncomfortable and was complaining of pain in her abdomen. VITAL SIGNS: Temperature 99.6, heart rate 85, respiratory rate 14, O2 saturation 97% on room air, blood pressure 155/91. LUNGS: Clear to auscultation bilaterally with no accessory muscle use and good aeration. HEART: S1 and S2. No murmur, rub, or gallop, and regular. ABDOMEN: Soft. There is tenderness across the lower abdomen, but bowel sounds are positive. No distention. EXTREMITIES: No cyanosis or edema. NEURO: She is alert and oriented x3. She moves all extremities equally. There is no facial asymmetry or focal weakness. Extraocular movements are intact. SKIN: Intact. LABORATORY DATA: On 05/24/16, hemoglobin 8.8, hematocrit 28, white blood cell count 6.3, platelet count 402. Sodium 135, potassium 3.7, chloride 102, serum bicarbonate 29, BUN 12, creatinine 0.66, glucose 121. ASSESSMENT: Ms. Monahan is a 45-year-old female with a past medical history of heavy uterine bleeding who presents today at the hospital for uterine fibroid embolization. The procedure has been performed by Dr. Magallon and plans are for observation in the hospital for pain control. Plan is as follows: 1. Uterine fibroid embolization, postop day # 0. The patient is complaining of severe pain, but Dr. Magallon is working with nursing staff to adjust for medications from Dilaudid to morphine, which seems to be having a better effect. We will continue to adjust those as needed through the night to maintain her comfort. 2. History of hypothyroidism. Continue [place] Thyroid. 3. DVT prophylaxis with SCDs. 4. Disposition to surgical floor. TIME SPENT: Approximately 60 minutes were spent on admission of this patient; more than half the time was spent with the patient at the bedside reviewing the events leading up to this hospitalization, performing the physical examination, and reviewing my plan of care. NEMO CROCKER NP CC: Dr. Rodriguez; Dr. Johnson* [id number]/[facility] #: [id number] MTDNickie
[2016-05-31] MEDS: Ondansetron INJ* 2 MG/ML VIAL IV SCH ×2 (00:40→05:40)
[2016-05-31] MEDS: Ketorolac INJ* 15 MG/ML 1 ML VIAL IV PUSH SCH ×2 (00:40→05:39)
[2016-05-31] MEDS: NS 0.9% 1000 ML* 1,000 ML IV SCH (03:42)
[2016-05-31] MEDS ORDERED: Morphine INJ* 2 MG/ML 1 ML CARPUJECT IV PRN (08:22)
[2016-05-31] MEDS ORDERED: oxyCODONE SR TAB(*) 10 MG TAB.SR PO PRN (08:26)
[2016-05-31] MEDS ORDERED: Docusate CAP* 100 MG PO SCH (09:00)
[2016-05-31] MEDS ORDERED: Thyroid TAB* 30 MG PO SCH (09:00)
[2016-05-31] MEDS ORDERED: oxyCODONE TAB* 5 MG TAB ONE ×2 (09:13→11:33)
[2016-05-31] MEDS ORDERED: KETOROLAC 10 MG PO SCH (10:00)
[2016-05-31] MEDS ORDERED: Ondansetron ODT TAB* 4 MG PO SCH (10:00)
[2016-05-31] MEDS ORDERED: oxyCODONE TAB* 5 MG TAB PO ONE (11:18)
--- NOTE | 2016-05-31 12:03 | PN ---
Progress Note - Progress Note SOAP: Date of Service: 05/31/16 Subjective: Pain reasonably controlled, ~5/10. No nausea. +void. Ambulating without difficulty. Ate a small breakfast. Objective: [] Selected Entries 05/31/16 07:29 Temperature 97.9 F Temperature Oral Source Pulse Rate 74 Respiratory 16 Rate Blood Pressure 165/82 (mmHg) Blood Pressure 103 Mean O2 Sat by Pulse 100 Oximetry Patient on Room Yes Air NAD, AAOx3 Sitting up in bed fully dressed. Left CF artertiotomy is soft, NT, Dressing is CDI 2+ pulses in the LLE Low abdomen and pelvis mildly tender to palpation Assessment: 45 YOF POD #1 s/p UFE from left common femoral arteriotomy, now with no nausea/ emesis and adequately controlled pain. Plan: 1. Patient appears prepared to D/C to home. 2. Rx related to UFE electronically submitted to [facility]. 3. IR clinic will call in 2-3 days for follow up. Patient has my contact information and is encouraged to contact me if there are any issues.
[2016-05-31 12:20] VITALS: BP 144/87
--- NOTE | 2016-05-31 12:59 | PN ---
Subjective Date of Service: 05/31/16 Interval History: Ms. Monahan continues to have some lower abdominal pain but her nausea is under control. She denies any other complaint. Objective Active Medications: Docusate Sodium (Colace Cap*) 100 mg PO BID [facility] Ketorolac Tromethamine (Toradol Tab (Nf)) 10 mg PO Q6H [place] Morphine Sulfate (Morphine Inj (Syringe)*) 2 mg IV Q2H PRN Ondansetron HCl (Zofran Odt Tab*) 4 mg PO Q6H [place] Oxycodone HCl (Oxycontin(*)) 10 mg PO Q6HR PRN Thyroid (Thyroid Tab*) 60 mg PO QAM [facility] Vital Signs 05/30/16 05/30/16 05/30/16 13:50 14:00 14:05 Temperature 99.5 F Pulse Rate 88 85 Respiratory 14 14 14 Rate Blood Pressure 152/81 143/83 (mmHg) O2 Sat by Pulse 94 96 Oximetry 05/30/16 05/30/16 05/30/16 14:13 14:37 14:58 Temperature 99.5 F Pulse Rate 79 93 Respiratory 14 16 18 Rate Blood Pressure 155/88 156/89 (mmHg) O2 Sat by Pulse 100 98 Oximetry 05/30/16 05/30/16 05/30/16 15:05 15:26 15:49 Temperature 99.6 F Pulse Rate 85 Respiratory 12 16 16 Rate Blood Pressure 155/91 (mmHg) O2 Sat by Pulse 97 Oximetry 05/30/16 05/30/16 05/30/16 15:52 16:20 17:28 Temperature 99.6 F Pulse Rate 89 85 Respiratory 14 14 14 Rate Blood Pressure 158/86 155/91 (mmHg) O2 Sat by Pulse 100 97 Oximetry 05/30/16 05/30/16 05/30/16 17:31 17:38 17:47 Temperature 100.0 F Pulse Rate 82 Respiratory 14 14 14 Rate Blood Pressure 151/81 (mmHg) O2 Sat by Pulse Oximetry 05/30/16 05/30/16 05/30/16 18:12 18:38 18:40 Temperature Pulse Rate Respiratory 14 14 12 Rate Blood Pressure (mmHg) O2 Sat by Pulse 98 97 Oximetry 05/30/16 05/30/16 05/30/16 19:28 19:38 20:05 Temperature Pulse Rate Respiratory 12 12 12 Rate Blood Pressure (mmHg) O2 Sat by Pulse 94 Oximetry 05/30/16 05/30/16 05/30/16 20:24 20:28 20:40 Temperature 97.7 F Pulse Rate 82 Respiratory 16 16 Rate Blood Pressure 151/90 (mmHg) O2 Sat by Pulse 99 95 98 Oximetry 05/30/16 05/30/16 05/31/16 21:28 22:28 00:08 Temperature 97.4 F Pulse Rate 85 Respiratory 14 14 16 Rate Blood Pressure 167/89 (mmHg) O2 Sat by Pulse 96 98 100 Oximetry 05/31/16 05/31/16 05/31/16 00:39 01:57 02:00 Temperature Pulse Rate Respiratory 16 16 16 Rate Blood Pressure (mmHg) O2 Sat by Pulse 99 97 Oximetry 05/31/16 05/31/16 05/31/16 02:57 03:45 03:46 Temperature 97.1 F Pulse Rate 83 Respiratory 16 16 16 Rate Blood Pressure 170/98 (mmHg) O2 Sat by Pulse 99 99 Oximetry 05/31/16 05/31/16 05/31/16 03:57 05:38 07:29 Temperature 97.9 F Pulse Rate 74 Respiratory 16 16 16 Rate Blood Pressure 165/82 (mmHg) O2 Sat by Pulse 97 100 Oximetry 05/31/16 05/31/16 05/31/16 07:59 08:00 09:18 Temperature Pulse Rate Respiratory 16 16 16 Rate Blood Pressure (mmHg) O2 Sat by Pulse 97 97 Oximetry 05/31/16 05/31/16 05/31/16 10:00 10:24 11:28 Temperature Pulse Rate Respiratory 16 16 16 Rate Blood Pressure (mmHg) O2 Sat by Pulse 97 97 Oximetry 05/31/16 05/31/16 11:35 12:07 Temperature 98.0 F Pulse Rate 98 Respiratory 16 16 Rate Blood Pressure 144/87 (mmHg) O2 Sat by Pulse 100 Oximetry Appearance: Female lying in bed in NAD Respiratory: Symmetrical Chest Expansion and Respiratory Effort, Clear to Auscultation Cardiovascular: NL Sounds; No Murmurs; No JVD Abdominal: - - Tenderness to lower abdomen Extremities: No Edema Skin: No Rash or Ulcers Neurological: Alert and Oriented x 3, NL Muscle Strength and Tone Nutrition: Taking PO's Assess/Plan/Problems-Billing Assessment: Ms. Monahan is a 45 yo female who was admitted on 05/30/16 for uterine fibroid embolization. - Patient Problems (1) Uterine fibroid Comment: S/p embolization. Appreciate Dr. Magallon's input. Groin site without swelling, benign. Nausea controlled, will have oxycodone for pain. Follow up Dr. Magallon arranged. Status and Disposition: Discharge
--- NOTE | 2016-06-01 03:37 | DS ---
HOSPITAL MEDICINE DISCHARGE SUMMARY: DATE OF ADMISSION: 05/30/16 DATE OF DISCHARGE: 05/31/16 ATTENDING PHYSICIAN: Dr. Padilla Plunkett *(dictation provided by Tennille Crocker NP ). PRIMARY DIAGNOSIS: Status post uterine fibroid embolization. SECONDARY DIAGNOSIS: Hypothyroidism. MEDICATIONS: At the time of discharge are: 1. Oxycodone 5 mg 1 to 2 tabs p.o. q.6 hours p.r.n. pain. 2. Lorazepam 0.5 mg to 1 mg p.o. b.i.d. 3. Promethazine 50 mg p.o. q.8 hours. 4. Rizatriptan 10 mg p.o. q.2 hours p.r.n. 5. [place] Thyroid 60 mg p.o. q.a.m. 6. Docusate 100 mg p.o. b.i.d. 7. Scopolamine patch q.72 hours. HOSPITAL COURSE: Ms. Monahan is a 45-year-old female who presented to the hospital for planned uterine fibroid embolization on 05/30/[address] Magallon. Please see the dictated H and P and reports from Dr. Magallon for complete details. In brief, the patient had had ongoing abnormal heavy uterine bleeding thought to be secondary to fibroids. She tolerated the procedure well. Today, she has benign access site in the groin. She has good control of her nausea. She continues to have pain in the abdomen, which is not unexpected and she will be discharged to home with pain medications and nausea medications p.r.n. Ms. Monahan is to follow up with Dr. Magallon, and all of this has been arranged through his office. DISPOSITION: Home. DIET: Regular. ACTIVITY: Please see the discharge instructions from Dr. Magallon's information, which has been provided to the patient in the discharge instruction paperwork. TIME SPENT: Approximately 60 minutes were spent on the discharge of this patient, more than half the time spent with the patient at the bedside performing his physical examination and reviewing the plan of care. TENNILLE CROCKER NP CC: Luan Rodriguez MD; Lorelei Johnson MD* [id number]/[facility] #: [id number] ASHLEY
== END 2016-05-31 14:00 | disposition home or self-care (01) ==
LOC: CHICATH 08:16 → SSU 13:13
PROVIDERS: ADMIT Radiology Diagnostic Radiology; ATTEND Internal Medicine
DX: D25.9 Leiomyoma of uterus, unspecified (principal); N92.0 Excessive and frequent menstruation with regular cycle; D50.0 Iron deficiency anemia secondary to blood loss (chronic); E03.9 Hypothyroidism, unspecified; F32.9 Major depressive disorder, single episode, unspecified; Z88.0 Allergy status to penicillin; Z88.2 Allergy status to sulfonamides; Z88.8 Allergy status to other drugs, medicaments and biological substances; Z87.891 Personal history of nicotine dependence; Z32.02 Encounter for pregnancy test, result negative; Z79.899 Other long term (current) drug therapy
CPT/HCPCS: 36415; 37243; 84702; 96361; 96374; 96375; 96376; A9270-GY; C1725; C1887; G0378; J1170; J1200; J1644; J1885; J2060; J2250; J2270; J2310; J2405; J3010

== ENCOUNTER 2017-07-21 21:52 | Emergency (ER) | payer OTHER ==
[2017-07-22 02:49] LABS: ABS Basophils 0.1 10^3/ul (0-0.2); ABS Eosinophils 0.4 10^3/ul (0-0.6); ABS Monocytes 0.8 10^3/ul (0-0.8); ABS Nucleated RBC 0 10^3/ul; Eosinophil % 5.1 % (0-6); Hematocrit 37 % (35-47); Hemoglobin 12.2 g/dl (12.0-16.0); Lymphocyte % 41.3 % (25-47); Mean Corpuscular HGB Conc 33 g/dl (31-36); Mean Corpuscular Hemoglobin 29 pg (27-31); Mean Corpuscular Volume 88 fL (80-97); Mean Platelet Volume 7.6 um3 (7.4-10.4); Nucleated Red Blood Cells % 0.1; Platelet Count 310 10^3/ul (150-450); Red Blood Count 4.16 10^6/ul (4.0-5.4); Red Cell Distribution Width 14 % (10.5-15); White Blood Count 7.2 10^3/ul (3.5-10.8)
[2017-07-22 02:52] LABS: INR 0.94 (0.77-1.02)
[2017-07-22 02:57] LABS: EGFR Non-African American 100.8 (>60)
[2017-07-22] MEDS ORDERED: Clindamycin CAP* 150 MG PO ONE (03:27)
[2017-07-22] MEDS ORDERED: Magnesium CITRATE* 300 ML BTL PO ONE (03:27)
[2017-07-22] MEDS ORDERED: Bisacodyl SUPP* 10 MG SUPP PR ONE (03:27)
[2017-07-22 03:57] VITALS: BP 123/66
--- NOTE | 2017-07-22 08:22 | RAD ---
Indication: Back pain. CT of the abdomen and pelvis was performed without oral or IV contrast administration. Coronal and sagittal reconstructed images were obtained. Right basilar atelectasis is noted. Heart is of normal size without evidence of pericardial effusion. Liver is enlarged. No focal lesions or intrahepatic ductal dilatation is noted. The gallbladder demonstrates no gallstones, pericholecystic fluid or wall thickening. The spleen is normal in size. No adrenal lesions are noted. The kidneys demonstrates no hydronephrosis. No retroperitoneal lymphadenopathy is noted. The pancreas demonstrates no mass or pancreatic duct dilatation. Colon is filled with stool. CT of the pelvis demonstrates myomatous changes of the uterus. Multiloculated low density mass is noted on the left side of the uterus measuring up to 8.0 x 4.0 cm. I cannot tell whether this is ovary, part of a large fibroid or hydrosalpinx. Correlation with pelvic ultrasound may be helpful. Urinary bladder is unremarkable. No hernias are noted. This spine demonstrates mild degenerative disc disease especially at L5-S1. IMPRESSION: No evidence of obstructive uropathy is noted. Degenerative changes of the lower lumbar spine are noted. Myomatous changes of the uterus are noted. Low density ovoid lesion is noted in the left adnexal region. This may represent necrotic fibroids or hydrosalpinx and correlation with ultrasound may be helpful.
--- NOTE | 2017-08-08 05:12 | ED ---
Elfego Morrison Angela, scribed for Benjamin Chaidez MD on 07/22/17 at 0224 . Back Pain - HPI Summary HPI Summary: This pt is a 46 y/o female presenting to [facility] c/o bilateral flank pain x2 days. Pt additionally reports swelling in bilateral lower extremity that began 2 days ago. She states her swelling has worsened over the last 2 days that now her legs are painful. Pt was discharged 6 days ago from rehab at [facility] for opiate addiction. She states she was in rehab for 28 days for relapsing on 2 separate occasions on oxycodone Pt is currently on Gabapentin, Wellbutrin, and Suboxone. She denies IVDU. PMHx includes: hypothyroid, depression, anxiety, substance abuse. She takes thyroid medications 100 mcg. - History of Current Complaint Chief Complaint: EDFlankPain Stated Complaint: BACK PAIN Time Seen by Provider: 07/21/17 23:40 Hx Obtained From: Patient Hx Last Menstrual Period: 11/15/15 Onset/Duration: Lasting Days, Still Present Onset/Duration: Started Days Ago Timing: Lasting Days Back Pain Location: Is Discrete @ - bilateral flank Severity Currently: Severe Pain Intensity: 10 Pain Scale Used: 0-10 Numeric Aggravating Symptom(s): Movement Alleviating Symptom(s): Nothing Associated Signs And Symptoms: Positive: Swelling - in bilateral LE, Flank Pain - bilateral. Negative: Abdominal Pain, Bladder Incontinence, Bowel Incontinence - Allergies/Home Medications Allergies/Adverse Reactions: Allergies Allergy/AdvReac Type Severity Reaction Status Date / Time acetaminophen [From Tylenol] Allergy Difficulty Verified 07/21/17 21:58 Breathing amoxicillin Allergy Rash Verified 07/21/17 21:58 ibuprofen Allergy Abdominal Verified 07/21/17 21:58 Pain Penicillins Allergy Rash Verified 07/21/17 21:58 Sulfa (Sulfonamide Allergy Difficulty Verified 07/21/17 21:58 Antibiotics) Breathing PMH/Surg Hx/FS Hx/Imm Hx Endocrine/Hematology History: Reports: Hx Thyroid Disease - hypothyroid, Hx Anemia Denies: Hx Diabetes Cardiovascular History: Denies: Hx Congestive Heart Failure, Hx Hypertension, Hx Myocardial Infarction, Hx Pacemaker/ICD Respiratory History: Reports: Hx Chronic Bronchitis, Hx Seasonal Allergies Denies: Hx Asthma, Hx Chronic Obstructive Pulmonary Disease (COPD), Hx Lung Cancer GI History: Denies: Hx Gall Bladder Disease, Hx Gastrointestinal Bleed, Hx Ulcer, Hx Urosepsis History: Reports: Hx Kidney Infection, Other Problems/Disorders - difficulty "getting started" recently; prolapsed bladder Denies: Hx Kidney Stones, Hx Renal Disease Musculoskeletal History: Reports: Hx Back Problems Sensory History: Denies: Hx Hearing Aid Neurological History: Reports: Hx Headaches, Hx Migraine Denies: Hx Dementia, Hx Seizures, Hx Transient Ischemic Attacks (TIA) Psychiatric History: Reports: Hx Anxiety, Hx Depression, Hx Substance Abuse Denies: Hx Eating Disorder, Hx Panic Disorder, Hx of Violent Episodes Against Others - Surgical History Surgery Procedure, Year, and Place: [facility] app 2013. RIGHT arm laceration 1984 Hx Anesthesia Reactions: No Infectious Disease History: No Infectious Disease History: Denies: Hx Clostridium Difficile, Hx Hepatitis, Hx Human Immunodeficiency Virus (HIV), Hx of Known/Suspected MRSA, Hx Shingles, Hx Tuberculosis, Hx Known/ Suspected VRE, Hx Known/Suspected VRSA, History Other Infectious Disease, Traveled Outside the [place] in Last 30 Days - Family History Known Family History: Positive: Cardiac Disease, Hypertension - Social History Alcohol Use: None Substance Use Type: Reports: None Substance Use Comment - Amount & Last Used: former use of oxycodone Smoking Status (MU): Former Smoker Amount Used/How Often: social smoker 20 years ago Review of Systems Negative: Fever, Chills ENT: Negative Cardiovascular: Negative Respiratory: Negative Positive: flank pain - bilateral Positive: Edema - in bilateral LE Neurological: Negative All Other Systems Reviewed And Are Negative: Yes Physical Exam - Summary Physical Exam Summary: VITAL SIGNS: Reviewed. GENERAL: Patient is a well-developed and nourished female who is lying comfortable in the stretcher. Patient is not in any acute respiratory distress. HEAD AND FACE: No signs of trauma. No ecchymosis, hematomas or skull depressions. No sinus tenderness. EYES: PERRLA, EOMI x 2, No injected conjunctiva, no nystagmus. EARS: Hearing grossly intact. Ear canals and tympanic membranes are within normal limits. MOUTH: Oropharynx within normal limits. NECK: Supple, trachea is midline, no adenopathy, no JVD, no carotid bruit, no c- spine tenderness, neck with full ROM. CHEST: Symmetric, no tenderness at palpation LUNGS: Clear to auscultation bilaterally. No wheezing or crackles. CVS: Regular rate and rhythm, S1 and S2 present, no murmurs or gallops appreciated. ABDOMEN: Soft, non-tender. No signs of distention. No rebound no guarding, and no masses palpated. Bowel sounds are normal. EXTREMITIES: FROM in all major joints, no cyanosis or clubbing. Trace edema in bilateral lower extremity, left worse than right. Redness over the left leg. NEURO: Alert and oriented x 3. No acute neurological deficits. Speech is normal and follows commands. SKIN: Dry and warm Triage Information Reviewed: Yes Vital Signs On Initial Exam: Initial Vitals Temp Pulse Resp BP Pulse Ox 97.6 F 69 18 129/60 98 07/21/17 21:54 07/21/17 21:54 07/21/17 21:54 07/21/17 21:54 07/21/17 21:54 Vital Signs Reviewed: Yes Diagnostics - Vital Signs Vital Signs Temp Pulse Resp BP Pulse Ox 07/21/17 21:54 97.6 F 69 18 129/60 98 - Laboratory Result Diagrams: 07/22/17 02:32 07/22/17 02:32 Lab Statement: Any lab studies that have been ordered have been reviewed, and results considered in the medical decision making process. - CT Abdomen/pelvis CT CT Interpretation: Positive (See Comments) - IMPRESSION: Questionable left- sided hydrosalpinx can be followed up with pelvic ultrasound. Fibroid uterus. Moderate amount of diffuse solid stool. Dr. Chaidez has reviewed this radiology report. CT Interpretation Completed By: Radiologist Re-Evaluation - Re-Evaluation First Eval Re-Evaluation Time: 03:26 Comment: Pt is sleeping and snoring currently. Back Pain Course/Dx - Course Assessment/Plan: Pt is a 46 y/o female who presents with bilateral flank pain x2 days. Pt additionally reports swelling in bilateral lower extremity that began 2 days ago. She states her swelling has worsened over the last 2 days that now her legs are painful. Pt was discharged 6 days ago from rehab at [facility] for opiate addiction. She states she was in rehab for 28 days for relapsing on 2 separate occasions on oxycodone Pt is currently on Gabapentin, Wellbutrin, and Suboxone. She denies IVDU. Pt declines any pain medications due to recent discharge from rehab. Test results without any significant abnormalities. Abdomen/Pelvis CT shows questionable left-sided hydrosalpinx can be followed up with pelvic ultrasound. Fibroid uterus. Moderate amount of diffuse solid stool. Pt has mild redness over the left left which could possibly be early cellulitis, therefore I will prescribe her clindamycin. Pt's blood work and CT scan shows no opiate reason for lower extremity swelling. In the ED pt was given laxatives. Pt will be discharged home with follow up from her PCP and a prescription for clindamycin. - Diagnoses Provider Diagnoses: Left leg cellulitis, Constipation Discharge - Sign-Out/Discharge Documenting (check all that apply): Discharge/Admit/Transfer - Discharge - Discharge Plan Condition: Stable Disposition: HOME Prescriptions: Clindamycin Cap(NF) [Clindamycin Cap 300 mg Cap(NF)] 300 mg PO Q6H #30 cap Patient Education Materials: Constipation (ED), Cellulitis (ED) Referrals: Luan Rodriguez MD [Primary Care Provider] - Additional Instructions: Please follow up with your primary care provider. RETURN TO EMERGENCY DEPARTMENT FOR ANY NEW OR WORSENING SYMPTOMS. The documentation as recorded by the Elfego mccarthy Angela accurately reflects the service I personally performed and the decisions made by me, Benjamin Chaidez MD.
== END 2017-07-22 03:56 | disposition home or self-care (01) ==
LOC: ED 21:52
DX: L03.116 Cellulitis of left lower limb (principal); K59.00 Constipation, unspecified; D25.9 Leiomyoma of uterus, unspecified; E03.9 Hypothyroidism, unspecified; D64.9 Anemia, unspecified; G43.909 Migraine, unspecified, not intractable, without status migrainosus; F41.9 Anxiety disorder, unspecified; F32.9 Major depressive disorder, single episode, unspecified; Z88.6 Allergy status to analgesic agent; Z88.1 Allergy status to other antibiotic agents; Z88.0 Allergy status to penicillin; Z88.2 Allergy status to sulfonamides; Z87.891 Personal history of nicotine dependence
CPT/HCPCS: 36415; 74176; 80053; 83735; 84702; 85025; 85610; 85730; 99284; A9270-GY

== ENCOUNTER 2018-01-04 12:58 | Emergency (ER) | payer OTHER ==
[2018-01-04 13:30] VITALS: BP 120/75
[2018-01-04] MEDS ORDERED: Ketorolac INJ* 60 MG/2 ML VIAL IM ONE (13:49)
--- NOTE | 2018-01-04 13:50 | UC ---
UC General HPI - HPI Summary HPI Summary: This patient is a 47 year old F presenting to [facility] with a chief complaint of headache for the last four days. Along with this she has had a fever of 104 last night. The patient rates the pain 6/10 in severity. Symptoms alleviated by rizatriptan and OTC antipyretics. Patient reports dry cough, myalgia, and photophobia. Patient denies sore throat, nasal congestion, sinus pain, neck pain , and post nasal drip. - History of Current Complaint Chief Complaint: UCGeneralIllness Stated Complaint: FEVER COUGH HEADACHE BODYACHES Time Seen by Provider: 01/04/18 13:43 Hx Obtained From: Patient Hx Last Menstrual Period: 2 weeks ago Onset/Duration: Lasting Days - 4, Still Present Timing: Constant Onset Severity: Moderate Current Severity: Moderate Pain Intensity: 6 Pain Location at: head Aggravating: light Associated Signs & Symptoms: Positive: Other - OTC antupyuretics. Patient reports - Allergy/Home Medications Allergies/Adverse Reactions: Allergies Allergy/AdvReac Type Severity Reaction Status Date / Time amoxicillin Allergy Rash Verified 01/04/18 13:31 Penicillins Allergy Rash Verified 01/04/18 13:31 Sulfa (Sulfonamide Allergy Difficulty Verified 01/04/18 13:31 Antibiotics) Breathing Home Medications: Home Medications Thyroid,Pork [Thyroid] 1 tab PO DAILY 01/04/18 [History Confirmed 01/04/18] PMH/Surg Hx/FS Hx/Imm Hx Endocrine History: Hypothyroidism Neurological History: Migraine Psychological History: Anxiety, Depression - Surgical History Surgical History: Yes Surgery Procedure, Year, and Place: [facility] 2013. RIGHT arm laceration 1984. embolization - Family History Known Family History: Positive: Cardiac Disease, Hypertension - Social History Alcohol Use: None Substance Use Type: None Substance Use Comment - Amount & Last Used: former use of oxycodone Smoking Status (MU): Former Smoker Amount Used/How Often: social smoker 20 years ago - Immunization History Most Recent Influenza Vaccination: never Most Recent Tetanus Shot: up to date Most Recent Pneumonia Vaccination: none Review of Systems Eyes: Photophobia Respiratory: Cough Musculoskeletal: Myalgia Neurological: Headache All Other Systems Reviewed And Are Negative: Yes Physical Exam - Summary Physical Exam Summary: VITAL SIGNS: Reviewed. GENERAL: Patient is a well-developed and nourished female who is lying comfortable in the stretcher. Patient is not in any acute respiratory distress. HEAD AND FACE: Normocephalic, sinus tenderness EYES: PERRLA, EOMI x 2. EARS: Hearing grossly intact. MOUTH: pharyngeal erythema NECK: Supple, trachea is midline, no adenopathy, no JVD, no carotid bruit. CHEST: Symmetric, no tenderness at palpation LUNGS: Clear to auscultation bilaterally. No wheezing or crackles. CVS: Regular rate and rhythm, S1 and S2 present, no murmurs or gallops appreciated. ABDOMEN: Soft, non-tender. Bowel sounds are normal. No abdominal abnormal pulsations. EXTREMITIES: Full ROM in all major joints, no edema, no cyanosis or clubbing. NEURO: Alert and oriented x 3. No acute neurological deficits. Speech is normal and follows commands. SKIN: Dry and warm Triage Information Reviewed: Yes Vital Signs: Initial Vital Signs Temp 99 F 01/04/18 13:26 Pulse 95 01/04/18 13:26 Resp 20 01/04/18 13:26 BP 120/75 01/04/18 13:26 Pulse Ox 97 01/04/18 13:26 Vital Signs Reviewed: Yes Diagnostics - Radiology CXR Radiology Interpretation Completed By: Radiologist - Findings consistent with right lower lobe pneumonia. Dr. Fink has reviewed this report. Course/Dx - Course Course Of Treatment: This patient is a 47-year-old female who presents to the urgent care complaining of productive cough, fever, body aches. Chest x-ray impression, findings consistent with a right lower lobe pneumonia. Patient is allergic to penicillins therefore she was given a prescription for azithromycin. She will be discharged home with follow-up with primary care physician in next 2 days. Patient is hemodynamically stable alert and oriented 3. - Differential Dx - Multi-Symptom Provider Diagnoses: Pneumonia Discharge - Sign-Out/Discharge Documenting (check all that apply): Patient Departure All imaging exams completed and their final reports reviewed: Yes - Discharge Plan Condition: Stable Disposition: HOME Prescriptions: Azithromyxin JOSEPH (NF) [Z-Joseph (Zithromax) 250 mg tabs #6] 2 tab PO .TODAY, THEN 1 DAILY #6 tab Patient Education Materials: Bacterial Pneumonia (ED) Forms: *Work Release Referrals: Luan Rodriguez MD [Primary Care Provider] - Additional Instructions: Take medications as instructed and adhere to plan Take Acetaminophen or ibuprofen for pain or fever Increase your fluid intake Return to the or go to the emergency department if symptoms worsen Follow-up with primary care physician in next 2-3 days - Billing Disposition and Condition Condition: STABLE Disposition: Home - Attestation Statements Document Initiated by Stanislav: Yes Documenting Scribe: Oral Ann Provider For Whom Scribe is Documenting (Include Credential): Gilberto Fink MD Scribe Attestation: IOral, scribed for Gilberto Fink MD on 01/04/18 at 1653. Scribe Documentation Reviewed: Yes Provider Attestation: The documentation as recorded by the Oral mccarthy accurately reflects the service I personally performed and the decisions made by me, Gilberto Fink MD
--- NOTE | 2018-01-04 14:33 | RAD ---
Indication: Cough. 2 views of the chest including dual energy PA views demonstrate airspace disease in the right base consistent with right lower lobe pneumonia. Left lung field is clear. IMPRESSION: Findings consistent with right lower lobe pneumonia.
[2018-01-06] MEDS ORDERED: PPD test dose* 5 TU/0.1 ML TEST (*USE PPD ORDER SET*) ONE (12:01)
== END 2018-01-04 14:48 | disposition home or self-care (01) ==
LOC: UCEAST 12:58
DX: J18.9 Pneumonia, unspecified organism (principal); Z88.0 Allergy status to penicillin; Z88.2 Allergy status to sulfonamides; Z87.891 Personal history of nicotine dependence
CPT/HCPCS: 71046; 96372; 99212; G0463; J1885

== ENCOUNTER 2018-08-04 16:33 | Emergency (ER) | payer OTHER ==
[2018-08-04 16:43] VITALS: BP 139/89
--- NOTE | 2018-08-04 16:50 | UC ---
Headache HPI - HPI Summary HPI Summary: 47 yo female presents for medication refills. She tells me that she has a history of migraines and insomnia. She usually takes imitrex or maxalt for her migraines with good relief. Also takes promethazine at bedtime for insomnia. She also has a hx of hypothyroidism and has been on synthroid for a number of years. Recently her PCP left the practice and she has not been able to establish with a new PCP yet. She has been out of her medications for about a week. Currently she has had a migraine for about 3 days and tylenol and is not helping. - History Of Current Complaint Chief Complaint: UCHeadache Stated Complaint: HEADACHE Time Seen by Provider: 08/04/18 16:49 Hx Obtained From: Patient Hx Last Menstrual Period: 1 YEAR Currently Pain Is: Moderate Pain Intensity: 7 Pain Scale Used: 0-10 Numeric - Allergies/Home Medications Allergies/Adverse Reactions: Allergies Allergy/AdvReac Type Severity Reaction Status Date / Time amoxicillin Allergy Rash Verified 08/04/18 16:43 Penicillins Allergy Rash Verified 08/04/18 16:43 Sulfa (Sulfonamide Allergy Difficulty Verified 08/04/18 16:43 Antibiotics) Breathing Home Medications: Home Medications Buprenorp/Nalox 4-1 MG FILM [Suboxone] 1 mis SL DAILY 08/04/18 [History Confirmed 08/04/18] Levothyroxine TAB* [Synthroid 100 MCG TAB*] 1 tab PO DAILY 08/04/18 [History Confirmed 08/04/18] Promethazine TAB* [Phenergan TAB*] 50 mg PO BEDTIME PRN 08/04/18 [History Confirmed 08/04/18] Venlafaxine CAP (NF) [Effexor CAP (NF)] 75 mg PO DAILY 08/04/18 [History Confirmed 08/04/18] buPROPion TAB* [Wellbutrin TAB*] 100 mg PO BID 08/04/18 [History Confirmed 08/04] cloNIDine TAB* [Catapres 0.1 MG TAB*] 0.1 mg PO DAILY 08/04/18 [History Confirmed 08/04/18] hydrOXYzine HCL TAB* [Atarax 10 MG TAB*] 10 mg PO QID PRN 08/04/18 [History Confirmed 08/04/18] PMH/Surg Hx/FS Hx/Imm Hx - Additional Past Medical History Additional PMH: Insomnia Migraines Endocrine History: Hypothyroidism - Surgical History Surgical History: Yes Surgery Procedure, Year, and Place: [facility] 2013. RIGHT arm laceration 1984. embolization - Family History Known Family History: Positive: Cardiac Disease, Hypertension - Social History Occupation: Employed Full-time Lives: With Family Alcohol Use: None Substance Use Type: None Substance Use Comment - Amount & Last Used: former use of oxycodone Smoking Status (MU): Former Smoker Amount Used/How Often: social smoker 20 years ago - Immunization History Most Recent Influenza Vaccination: never Most Recent Tetanus Shot: up to date Most Recent Pneumonia Vaccination: none Review of Systems All Other Systems Reviewed And Are Negative: Yes Constitutional: Positive: Negative Skin: Positive: Negative Respiratory: Positive: Negative Cardiovascular: Positive: Negative Gastrointestinal: Positive: Negative Neurovascular: Positive: Negative Musculoskeletal: Positive: Negative Neurological: Positive: Headache Psychological: Positive: Negative Physical Exam - Summary Physical Exam Summary: GENERAL: NAD. WDWN. No pain distress. SKIN: No rashes, sores, ulcers, masses, lesions. HEENT: Head: AT/NC. Eyes: PERRLA. EOM intact. Conjunctiva clear without inflammation or discharge. Ears: Hearing grossly normal. TMs intact, no bulging, erythema, or edema. Nose: Nasal mucosa pink and moist. NTTP maxillary and frontal sinus. Throat: Posterior oropharynx without exudates, erythema, or tonsillar enlargement. Uvula midline. NECK: Supple. Nontender. FROM CHEST: CTAB. No r/r/w. No accessory muscle use. Breathing comfortably and in no distress. CV: RRR. Without m/r/g. Pulses intact. Brisk cap refill. MSK: FROM in B/L UEs and LEs with symmetric strength. NEURO: A&Ox3. CN: II: Peripheral shrestha intact. Vision normal. III, IV, : EOMI. No nystagmus. PERRLA. V: Sensations intact and symmetric. Opens mouth and clenches teeth. VII: No facial asymmetry. Forehead wrinkles. Grins, shuts eyes, frowns, puffs cheeks. VIII: Hearing intact to finger rub. IX, X: Swallows and coughs. Uvula midline. XI: Shrugs shoulders. Turns head against resistance. XII : No tongue deviation [id number] are intact. Gait with normal base. Romberg : maintains balance, no pronator drift. Normal speech. No facial drooping. PSYCH: Age appropriate behavior. Triage Information Reviewed: Yes Vital Signs: Initial Vital Signs Temp 98.1 F 08/04/18 16:37 Pulse 99 08/04/18 16:37 Resp 17 08/04/18 16:37 BP 139/89 08/04/18 16:37 Pulse Ox 99 08/04/18 16:37 Vital Signs Reviewed: Yes Headache Course/Dx - Course Course Of Treatment: Will refill her synthyroid, imitrex, and promethazine for a 1 month supply. She was given the [facility] referral center information and encouraged to schedule an appointment within 1 month for follow up. - Differential Dx/Diagnosis Provider Diagnosis: Headache, Hypothyroid, Insomnia Discharge - Sign-Out/Discharge Documenting (check all that apply): Patient Departure All imaging exams completed and their final reports reviewed: No Studies - Discharge Plan Condition: Stable Disposition: HOME Prescriptions: Fluticasone NASAL SPRAY 50MCG* [Flonase NASAL SPRAY 50MCG*] 2 spray BOTH NARES DAILY #1 btl Levothyroxine TAB* [Synthroid TAB*] 100 mcg PO DAILY #30 tab Promethazine TAB* [Phenergan Tab*] 25 mg PO BEDTIME PRN #14 tab PRN Reason: Insomnia SUMAtriptan TAB* [Imitrex TAB*] 50 mg PO ONCE PRN #14 tab PRN Reason: Headache Patient Education Materials: Migraine Headache (ED) Referrals: Luan Rodriguez MD [Primary Care Provider] - [facility] PHYSICIAN REFERRAL [Outside] - As Soon As Possible Additional Instructions: If you develop a fever, shortness of breath, chest pain, new or worsening symptoms - please call your PCP or go to the ED immediately. Your blood pressure was high at todays visit. Please see your primary provider within 4 weeks for recheck and re-evaluation. Please call Eneida Ayala at the Physician Referral line to schedule an appointment with a new primary doctor within 1 month. - Billing Disposition and Condition Condition: STABLE Disposition: Home - Attestation Statements Provider Attestation: Per institutional requirements, I have reviewed the chart, however, I was not consulted specifically or made aware of this patient by the midlevel provider. I did not personally evaluate, interact with , or disposition this patient.
== END 2018-08-04 17:10 | disposition home or self-care (01) ==
LOC: UCEAST 16:33
DX: R51 Headache (principal); E03.9 Hypothyroidism, unspecified; G47.00 Insomnia, unspecified; Z76.0 Encounter for issue of repeat prescription; Z88.0 Allergy status to penicillin; Z88.2 Allergy status to sulfonamides; Z87.891 Personal history of nicotine dependence
CPT/HCPCS: 99212; G0463